=== PATIENT | male | born 1985 | race Caucasian/White ===

== ENCOUNTER 2024-07-02 20:00 | Emergency (ER) | payer OTHER, BC ==
[~2024-07-02] VITALS: Ht 154.9 cm; Wt 104.8 kg
--- NOTE | 2024-07-02 21:08 | HMCIMG ---
CT CERVICAL SPINE W/O CONTRAST HISTORY: FALL TECHNIQUE: Noncontrast CT of the cervical spine. Sagittal and coronal images were produced. CT was performed with one or more of the following dose reduction techniques: Automated exposure control, adjustment of the mA and/or kV according to the patient's size, or use of the iterative reconstruction technique. FINDINGS: Evaluation of the cord and discs is limited with CT. Nondisplaced fracture of the right transverse process and right pedicle of C7. Nonspecific straightening of curvature likely positional. Mild degenerative changes are seen Soft tissues of the neck are grossly within normal limits. This study cannot exclude ligamentous injury. IMPRESSION: Nondisplaced fracture of the right transverse process and right pedicle of C7. Nonspecific straightening of curvature likely positional. Mild degenerative changes are seen
--- NOTE | 2024-07-02 21:09 | HMCIMG ---
CT HEAD/BRAIN W/O CONTRAST INDICATION: FALL TECHNIQUE: CT HEAD/BRAIN W/O CONTRAST. CT was performed with one or more of the following dose reduction techniques: Automated exposure control, adjustment of the mA and/or kV according to the patient's size, or use of the iterative reconstruction technique. Comparison: None FINDINGS: The ventricles and extra ventricular CSF spaces are within normal limits. No mass effect, midline shift or herniation. No extra axial collection. No acute intracranial bleed. The visualized paranasal sinuses and mastoid air cells are normally aerated. IMPRESSION: No acute intracranial findings.
[2024-07-02 21:16] LABS: HEMATOCRIT 43.8 % (42-54); MEAN CORPUSCULAR HGB CONC 34.5 g/dL (32.0-36.0); MEAN CORPUSCULAR VOLUME 86.9 fL (79-99); RED BLOOD CELL COUNT(AUTO) 5.04 MIL/uL (4.50-6.20); RED CELL DISTRIBUTION WIDTH 13.2 % (11.0-15.5); WHITE BLOOD COUNT (AUTO) 15.2 K/uL (4.8-10.8)
[2024-07-02 21:24] LABS: CREATININE 1.4 mg/dL (0.5-1.3); POTASSIUM 3.9 mmol/L (3.5-5.1)
[2024-07-02 21:28] LABS: ALBUMIN 4.4 g/dL (3.5-5.0); BILIRUBIN,DIRECT 0.2 mg/dL (0.0-0.3); BILIRUBIN,TOTAL 0.7 mg/dL (0.2-1.0); TOTAL PROTEIN, SERUM 8.3 g/dL (6.0-8.3)
--- NOTE | 2024-07-02 21:34 | NUR ---
PT CARE ASSUMED AT THIS TIME
[2024-07-02] MEDS: acetaMINOPHEN 500 MG TABLET PO ONE (22:39)
[2024-07-02] MEDS: HYDROcodone/APAP 5/325 1 TAB TABLET PO ONE (22:44)
--- NOTE | 2024-07-02 23:00 | ERN ---
General Chief Complaint: Mechanical Fall Stated Complaint: C/O FALL FROM TOP BUNK AFTER SEIZURE Time Seen by MD: 21:15 Time Seen by Midlevel: 21:15 Source: patient History of Present Illness Initial Comments Patient is a 31-year-old male with a past medical history of seizures presenting to the ER for evaluation following a fall from his bunk bed. Patient allegedly states that he had a seizure and fell from the top bunk bed had 1st. States he remembers the entire episode and denies any loss of consciousness. He reports pain to his right shoulder and right elbow. Given mechanism of injury C-collar was placed in fdc. Denies being on any blood thinners. Allergies: Coded Allergies: Penicillins (Unverified Allergy, Unknown, 07/02/24) Past Medical History Past Medical History: Seizure Past Surgical History: None ROS Dictation CONSTITUTIONAL: Negative except for HPI HEAD/FACE: Negative except for HPI EENT: Negative except for HPI RESPIRATORY: Negative except for HPI GASTROINTESTINAL/ABDOMINAL: Negative except for HPI GENITOURINARY: Negative except for HPI MUSCULOSKELETAL: Negative except for HPI INTEGUMENTARY: Negative except for HPI NEUROLOGICAL/PSYCH: Negative except for HPI HEMATOLOGIC/LYMPHATIC: Negative except for HPI All Systems Negative, Except as noted above. 13 point review of systems assessed and all negative except for above. Physical Exam Physical Exam Dictation Vital Signs reviewed General Appearance: Alert, oriented x 3, no acute distress, well developed, nourished. Head and Face: non-traumatic. Eyes: PERRL, pink conjunctivas, eyelid no trauma, anterior chamber with arcus s enilis. Ears: Pinnas intact and no signs of trauma or erythema ear canals clear and no discharge TM no erythema Nose: No discharge, no bleeding. Oropharynx: Mouth normal, tongue pink, pharynx clear,no erythema, tonsils no exudates, no abscesses noted, mucous membrane moist Neck: C-collar in place Breast:Deferred Chest:No tenderness, no crepitus, no paradoxical movement, no retractions Lungs:Clear, well-ventilated, symmetric, no rales, no wheezing, no rhonchi, no stridor, good breath sounds bilaterally Heart: Regular rate, regular rhythm, no murmur, no gallops Vascular: no peripheral edema, Abdomen: Soft, positive bowel sounds, nondistended, no guarding, nontender, no rebound, no masses no hepatomegaly, no splenomegaly, no Esparza's sign, no hernias. Rectal: Deferred Genital: Deferred Neurological: Normal speech, motor function intact, sensory function intact Musculoskeletal: Neck nontender, full range of motion, back nontender, full range of motion, Extremities: nontender, full range of motion Skin: Color pink, dry, no turgor, no rash, no lacerations, no abrasions, no contusions. Lymphatic: Deferred Results Laboratory and Microbiology Lab and Micro Result Laboratory Tests Test 07/02/24 21:09 White Blood Count 15.2 K/uL (4.8-10.8) H Red Blood Count 5.04 MIL/uL (4.50-6.20) Hemoglobin 15.1 g/dL (14.0-18.0) Hematocrit 43.8 % (42-54) Mean Corpuscular Volume 86.9 fL (79-99) Mean Corpuscular Hemoglobin 30.0 pg (27.0-33.0) Mean Corpuscular Hemoglobin Concent 34.5 g/dL (32.0-36.0) Red Cell Distribution Width 13.2 % (11.0-15.5) Platelet Count 226 K/uL (130-400) Mean Platelet Volume 9.9 fL (7.5-10.5) Nucleated Red Blood Cells 0.0 % (0.0-0.19) Sodium Level 137 mmol/L (136-145) Potassium Level 3.9 mmol/L (3.5-5.1) Chloride Level 100 mmol/L (101-111) L Carbon Dioxide Level 24 mmol/L (21-32) Blood Urea Nitrogen 15 mg/dL (7-18) Creatinine 1.4 mg/dL (0.5-1.3) H Glomerular Filtration Rate Calc 66 mL/min (>90) Random Glucose 81 mg/dL (70-105) Total Calcium 9.2 mg/dL (8.5-10.1) Total Bilirubin 0.7 mg/dL (0.2-1.0) Direct Bilirubin 0.2 mg/dL (0.0-0.3) Aspartate Amino Transf (AST/SGOT) 50 U/L (10-37) H Alanine Aminotransferase (ALT/SGPT) 59 U/L (12-78) Alkaline Phosphatase 66 U/L (50-136) Total Protein 8.3 g/dL (6.0-8.3) Albumin 4.4 g/dL (3.5-5.0) Labs Reviewed?: Yes [facility] MDM: Patient is a 31-year-old male with a past medical history of seizures presenting to the ER for evaluation following a fall from his bunk bed. Patient allegedly states that he had a seizure and fell from the top bunk bed had 1st. States he remembers the entire episode and denies any loss of consciousness. He reports pain to his right shoulder and right elbow. Given mechanism of injury C-collar was placed in fdc. Denies being on any blood thinners. On physical examination patient is in no acute distress. There is a C-collar in place. His GCS is 15 and patient is alert and oriented x4. Patient has no signs of external trauma to his face or scalp. He has mild tenderness along the right elbow and shoulder. Range of motion is normal. Given mechanism of injury CT scan of the head and neck were obtained. CT scan is negative for any acute injuries however his CT cervical spine reveals a C7 transverse process fracture. A soft collar was placed and patient was given pain control in the emergency department. After his CT scan of the head and neck had resulted patient started to report back pain so a CT chest abdomen pelvis was performed which reveals no acute abnormality. Patient was observed in the ER for over 4 hours and has remained stable. Patient will be discharged back to fdc with outpatient follow up Neurosurgery. Differential diagnosis: Fracture, contusion, dislocation, electrolyte abnormality There are no social concerns with this patient. Prescription drug management Prescriptions will include: Toradol Medical management and examination interpretation discussions were had by me with other qualified healthcare professionals as indicated for the patient's care. ED Course Orders Procedure Category Date Status Time Ct Head/Brain W/O CT 07/02/24 Resulted Contrast 20:40 Ct Cervical Spine W/O CT 07/02/24 Resulted Contrast 20:40 Cbc Without LAB 07/02/24 Complete Differential 20:40 Basic Metabolic Panel LAB 07/02/24 Complete 20:40 Hepatic Function Panel LAB 07/02/24 Complete 20:40 Elbow Comp 3+Vws Rt RAD 07/02/24 Taken 20:40 Shoulder Comp 2+Vws Rt RAD 07/02/24 Taken 20:40 Acetaminophen 500mg PHA 07/02/24 Complete Tab (Tylenol 500mg T 22:00 Ct Chest/Abd/Pelv W/O CT 07/02/24 Resulted Contrast 22:02 Hydrocodone/Apap PHA 07/02/24 Complete 5/325 ([place] 5/325mg) 23:00 Dexamethasone 4mg/Ml PHA 07/02/24 Complete 1ml Vial (Dexametha 23:00 Current Medications Medications (Trade) Dose Ordered Sig/Rosangela Route PRN Reason Start Time Stop Time Status Last Admin Dose Admin Acetaminophen (TYLenol 500MG TAB) 1,000 mg ONCE ONCE PO 07/02/24 22:00 07/02/24 22:01 DC Acetaminophen/ Hydrocodone Bitart (NORco 5/325MG) 1 tab ONCE ONCE PO 07/02/24 23:00 07/02/24 23:01 DC 07/02/24 22:44 Dexamethasone Sodium Phosphate (dexaMETHasone 4MG/ML 1ML VIAL) 6 mg ONCE ONCE IM 07/02/24 23:00 07/02/24 23:01 DC 07/02/24 23:09 Vital Signs Date Time Temp Pulse Resp B/P (MAP) Pulse Ox O2 Delivery O2 Flow Rate FiO2 07/02/24 23:46 110 18 155/86 95 Room Air* 0 21 07/02/24 21:52 112 18 160/73 94 Room Air* 0 07/02/24 20:48 98.2 86 18 147/92 98 Room Air* 0 07/02/24 20:05 99.0 121 20 156/98 94 Room Air [place] [id number] IMAGING REPORT Signed PATIENT: ANNE MARIE FOSTER MR#: [id number] : 1985 SEX: M AGE: 39 LOCATION: ED ORDER 41 STATUS: REG ER REPORT#: [id number] SERVICE 39 REASON: FALL ORDERING PHYSICIAN: MARTHA LUNA MD PROCEDURE: HEAD WO - CT HEAD/BRAIN W/O CONTRAST CT HEAD/BRAIN W/O CONTRAST INDICATION: FALL TECHNIQUE: CT HEAD/BRAIN W/O CONTRAST. CT was performed with one or more of the following dose reduction techniques: Automated exposure control, adjustment of the mA and/or kV according to the patient's size, or use of the iterative reconstruction technique. Comparison: None FINDINGS: The ventricles and extra ventricular CSF spaces are within normal limits. No mass effect, midline shift or herniation. No extra axial collection. No acute intracranial bleed. The visualized paranasal sinuses and mastoid air cells are normally aerated. IMPRESSION: No acute intracranial findings. DICTATED BY: DIMAS STEINBERG MD DATE: 07/02/242105 ELECTRONICALLY SIGNED BY: DIMAS STEINBERG MD DATE: 07/02/242108 [place] [id number] [place] [id number] IMAGING REPORT Signed PATIENT: ANNE MARIE FOSTER MR#: [id number] : 1985 SEX: M AGE: 39 LOCATION: [facility] ORDER 41 STATUS: [facility] REPORT#: [id number] SERVICE 39 REASON: FALL ORDERING PHYSICIAN: MARTHA LUNA MD PROCEDURE: C SPIN WO - CT CERVICAL SPINE W/O CONTRAST CT CERVICAL SPINE W/O CONTRAST HISTORY: FALL TECHNIQUE: Noncontrast CT of the cervical spine. Sagittal and coronal images were produced. CT was performed with one or more of the following dose reduction techniques: Automated exposure control, adjustment of the mA and/or kV according to the patient's size, or use of the iterative reconstruction technique. FINDINGS: Evaluation of the cord and discs is limited with CT. Nondisplaced fracture of the right transverse process and right pedicle of C7. Nonspecific straightening of curvature likely positional. Mild degenerative changes are seen Soft tissues of the neck are grossly within normal limits. This study cannot exclude ligamentous injury. IMPRESSION: Nondisplaced fracture of the right transverse process and right pedicle of C7. Nonspecific straightening of curvature likely positional. Mild degenerative changes are seen DICTATED BY: DIMAS STEINBERG MD DATE: 07/02/242101 ELECTRONICALLY SIGNED BY: DIMAS STEINBERG MD DATE: 07/02/242107 [facility] [address] [id number] IMAGING REPORT Signed PATIENT: ANNE MARIE FOSTER MR#: [id number] : 1985 SEX: M AGE: 39 LOCATION: [facility] ORDER 02 STATUS: REG ER REPORT#: [id number] SERVICE 01 REASON: back pain s/p fall ORDERING PHYSICIAN: ANAIS ALEXIS PROCEDURE: CAP WO - CT CHEST/ABD/PELV W/O CONTRAST CT CHEST/ABD/PELV W/O CONTRAST HISTORY: Back pain COMPARISON: None TECHNIQUE: Multiple sequential axial images of the chest were obtained from the thoracic inlet through upper abdomen. Patient was not given contrast through intravenous route. FINDINGS: There is no evidence of pulmonary nodule or parenchymal disease. No pleural effusion or pericardial effusion is seen. There is no evidence of pneumothorax. There are normal size mediastinal and hilar lymph nodes. The heart is not enlarged. Degenerative changes of the thoracolumbar spine are present. There is no evidence of adrenal nodule. IMPRESSION: 1. No evidence of pulmonary nodule or effusion is seen. CT CHEST/ABD/PELV W/O CONTRAST HISTORY: Back pain COMPARISON: None TECHNIQUE: Multiple sequential axial images of the abdomen and pelvis were obtained from the dome of the diaphragm through symphysis pubis. Patient was not given contrast through intravenous route. Oral contrast was not given. FINDINGS: The liver, spleen, adrenal glands and pancreas are unremarkable. There is no evidence of hydronephrosis bilaterally. There is 4 mm left renal lower pole renal pelvic stone. Fecal material is seen in the colon. There are normal size retroperitoneal and mesenteric lymph nodes. No ascites is seen. No CT evidence of acute appendicitis is seen. Pelvic sidewalls are symmetric bilaterally. Bladder is well distended without wall thickening. IMPRESSION: 1. No acute findings. CT was performed with one or more following dose reduction techniques: automated exposure control, adjustment of the mA and kv according to patient's size, or use of a iterative reconstruction technique. DICTATED BY: KASEY DON MD DATE: 07/02/242313 ELECTRONICALLY SIGNED BY: KASEY DON MD DATE: 07/02/242319 DX & DISP Disposition: Discharge Departure Impression: Primary Impression: Closed fracture of transverse process of cervical vertebra Additional Impression: Medical clearance for incarceration Condition: Stable Additional Instructions: Your blood work today is stable. Your right elbow and right shoulder x-ray are negative for any acute fracture Your CT scan of the head along with your chest abdomen and pelvis are negative for any acute injury. Your cervical spine CT scan shows a nondisplaced fracture of the right transverse process and right pedicle of C7. A soft collar was placed. You will need to follow up with Neurosurgery outpatient within the next 24-48 hours. You may take Tylenol and Motrin for pain. Return to the ER for any new or worsening symptoms. Referrals: SELF,REFERRAL (PCP) JUANITO KRUEGER MD Time of Disposition: 00:03 I have reviewed the case, and I agree with, Diagnosis and Plan I performed the substantive portion of the visit. I have reviewed and personally made and approve the management plan that is documented in the note by myself or the JAYA. I acknowledge for responsibility for the patient's management plan. ANAIS ALEXIS Jul 02, 2024 23:00
[2024-07-02] MEDS: dexaMETHasone SOD PHOSPHATE 4 MG/ML 1ML VIAL IM ONE (23:09)
--- NOTE | 2024-07-02 23:20 | HMCIMG ---
CT CHEST/ABD/PELV W/O CONTRAST HISTORY: Back pain COMPARISON: None TECHNIQUE: Multiple sequential axial images of the chest were obtained from the thoracic inlet through upper abdomen. Patient was not given contrast through intravenous route. FINDINGS: There is no evidence of pulmonary nodule or parenchymal disease. No pleural effusion or pericardial effusion is seen. There is no evidence of pneumothorax. There are normal size mediastinal and hilar lymph nodes. The heart is not enlarged. Degenerative changes of the thoracolumbar spine are present. There is no evidence of adrenal nodule. IMPRESSION: 1. No evidence of pulmonary nodule or effusion is seen. CT CHEST/ABD/PELV W/O CONTRAST HISTORY: Back pain COMPARISON: None TECHNIQUE: Multiple sequential axial images of the abdomen and pelvis were obtained from the dome of the diaphragm through symphysis pubis. Patient was not given contrast through intravenous route. Oral contrast was not given. FINDINGS: The liver, spleen, adrenal glands and pancreas are unremarkable. There is no evidence of hydronephrosis bilaterally. There is 4 mm left renal lower pole renal pelvic stone. Fecal material is seen in the colon. There are normal size retroperitoneal and mesenteric lymph nodes. No ascites is seen. No CT evidence of acute appendicitis is seen. Pelvic sidewalls are symmetric bilaterally. Bladder is well distended without wall thickening. IMPRESSION: 1. No acute findings. CT was performed with one or more following dose reduction techniques: automated exposure control, adjustment of the mA and kv according to patient's size, or use of a iterative reconstruction technique.
--- NOTE | 2024-07-03 00:20 | HMCIMG ---
ELBOW COMP 3+VWS RT HISTORY: Status post fall COMPARISON: None TECHNIQUE: 2 images of right elbow were obtained. FINDINGS: There is no acute displaced fracture or dislocation. IMPRESSION: 1. Findings as described above.
[2024-07-03] MEDS: ketOROlac 15MG/ML VIAL (15MG/ML) IM ONE (00:34)
--- NOTE | 2024-07-03 00:34 | NUR ---
PATIENT IS UP FOR DISCHARGE AND REMAINS IN PAIN; ATTENDING ED MD DR LUNA NOTIFIED; ORDERS RECIEVED FOR PAIN ANALGESIA PRIOR TO D/C. ORDER RECIEVED TRANSCRIBED AND GIVEN ORDERED.
[2024-07-03] MEDS: ketOROlac 15MG/ML VIAL (15MG/ML) ONE (00:37)
--- NOTE | 2024-07-03 00:41 | HMCIMG ---
SHOULDER COMP 2+VWS RT HISTORY: Status post fall COMPARISON: None TECHNIQUE: 2 images of right shoulder were obtained. FINDINGS: There is no acute displaced fracture or dislocation. Degenerative changes are seen. IMPRESSION: 1. Findings as described above.
[2024-07-03 00:44] VITALS: BP 149/79; PULSE 102; RESP 18; TEMP 98.1; O2SAT 96
== END 2024-07-03 00:44 ==
LOC: EEVIPCON 20:00 → EDH 20:00
DX: S12.601A Unspecified nondisplaced fracture of seventh cervical vertebra, initial encounter for closed fracture (principal); M25.521 Pain in right elbow; M25.511 Pain in right shoulder; Z88.0 Allergy status to penicillin; W06.XXXA Fall from bed, initial encounter; Y93.89 Activity, other specified; Y92.89 Other specified places as the place of occurrence of the external cause; Y99.8 Other external cause status
CPT/HCPCS: 99285; 70450; 80076; 80048; 85027; 36415; 73080; 73030; 72125; 71250; 74176; 96372 ×2; J1100; J1885